=== PATIENT | male | born 1990 | race African-American/Black ===

== ENCOUNTER 2017-06-10 02:47 | Emergency (ER) | payer MEDICAID, OTHER ==
[~2017-06-10] VITALS: Ht 177.8 cm; Wt 63.3 kg
[2017-06-10 02:48] VITALS: BP 125/88
[2017-06-10] MEDS ORDERED: CEFTRIAXONE 250 MG IM ONE (03:30)
[2017-06-10] MEDS ORDERED: IBUPROFEN 200 MG TABLET PO ONE (03:30)
[2017-06-10] MEDS ORDERED: AZITHROMYCIN 500 MG TABLET PO ONE (03:30)
[2017-06-10] MEDS ORDERED: AZITHROMYCIN 250 MG TABLET ONE (03:46)
[2017-06-10] MEDS ORDERED: CEFTRIAXONE 250 MG ONE (03:46)
[2017-06-10] MEDS ORDERED: IBUPROFEN 200 MG TABLET ONE (03:46)
== END 2017-06-10 05:01 | disposition home or self-care (01) ==
LOC: ED 04:00
DX: N30.01 Acute cystitis with hematuria (principal); N34.1 Nonspecific urethritis
CPT/HCPCS: 81001; 87086; 87491; 87591; 96372; 99284; J0696

== ENCOUNTER 2018-04-10 21:40 | Emergency (ER) | payer MEDICAID ==
[~2018-04-10] VITALS: Ht 177.8 cm; Wt 63.6 kg
[2018-04-10 23:53] VITALS: BP 110/58
== END 2018-04-11 00:07 | disposition home or self-care (01) ==
LOC: ED 23:23
DX: F10.229 Alcohol dependence with intoxication, unspecified (principal); F15.10 Other stimulant abuse, uncomplicated
CPT/HCPCS: 99283

== ENCOUNTER 2018-08-17 02:13 | Emergency (ER) | payer MEDICAID ==
[~2018-08-17] VITALS: Ht 177.8 cm; Wt 70.0 kg
[2018-08-17] MEDS ORDERED: MAALOX/HYOSCYAMINE/LIDOCAINE 45 ML BTL ONE (02:27)
[2018-08-17] MEDS ORDERED: ONDANSETRON ODT 4 MG ONE (02:27)
[2018-08-17] MEDS ORDERED: MAALOX/HYOSCYAMINE/LIDOCAINE 45 ML BTL PO ONE (02:30)
[2018-08-17] MEDS ORDERED: ONDANSETRON ODT 4 MG PO ONE (02:30)
[2018-08-17 02:36] LABS: BASOPHILS # (AUTO) 0.04 x10^3/uL (0-0.1); BASOPHILS % (AUTO) 0 % (0-1); EOSINOPHILS % (AUTO) 1 % (1-7); LYMPHOCYTES # (AUTO) 1.29 x10^3/uL (1-3.4); LYMPHOCYTES % (AUTO) 10 % (22-44); MD NO; MEAN CORPUSCULAR HEMOGLOBIN 28.6 pg (27.5-34.5); MEAN CORPUSCULAR VOLUME 86.7 fL (81-97); MEAN PLATELET VOLUME 9.1 fL (7.4-10.4); MONOCYTES # (AUTO) 0.52 x10^3/uL (0.2-0.8); MONOCYTES % (AUTO) 4 % (2-9); NEUTROPHILS # (AUTO) 10.82 x10^3/uL (1.8-6.8); NEUTROPHILS % (AUTO) 85 % (42-75); PLATELET COUNT 266 x10^3/uL (130-400); RED BLOOD COUNT 4.84 x10^6/uL (4.38-5.82); RED CELL DISTRIBUTION WIDTH 14.5 % (9.4-14.8)
[2018-08-17 02:45] LABS: ALANINE AMINOTRANSFERASE 34 U/L (12-78); ALBUMIN 3.8 g/dL (3.4-5.0); ANION GAP 8 mmol/L (5-15); CALCIUM 8.9 mg/dL (8.5-10.1); CHLORIDE 101 mmol/L (98-107); CREATININE 1.03 mg/dL (0.7-1.3)
[2018-08-17 02:47] LABS: ALKALINE PHOSPHATASE 133 U/L (45-117); BILIRUBIN,TOTAL 0.2 mg/dL (0.2-1.0); TOTAL PROTEIN 7.9 g/dL (6.4-8.2)
[2018-08-17] MEDS ORDERED: morphine SULFATE 10 MG/ML, 1ML IVPush ONE (03:00)
[2018-08-17] MEDS ORDERED: morphine SULFATE 10 MG/ML, 1ML ONE (03:02)
[2018-08-17] MEDS ORDERED: OMNIPAQUE 350 MG/ML, 100ML BOTTLE ONE (03:08)
[2018-08-17 03:27] VITALS: BP 160/100
== END 2018-08-17 04:09 | disposition home or self-care (01) ==
LOC: ED 02:33
DX: R10.84 Generalized abdominal pain (principal); R10.32 Left lower quadrant pain; R11.2 Nausea with vomiting, unspecified
CPT/HCPCS: 36415; 74177; 80053; 83690; 85025; 96374; 99284; J2270; Q0162; Q9967